=== PATIENT | male | born 1970 | race African-American/Black ===

== ENCOUNTER → 2018-04-09 | Outpatient (CLI) | payer OTHER ==
--- NOTE | 2018-04-09 10:48 | RAD ---
Chest, PA and Lateral: Technique: PA and lateral views of the chest were obtained. History: Congestive heart failure, shortness of breath. Comparison: None. Findings: Mild cardiomegaly. There is no acute infiltrate or visualized pneumothorax identified. Mild degenerative changes thoracic spine. IMPRESSION: 1. Mild cardiomegaly. Otherwise no acute cardiopulmonary findings. Electronically signed by: Brock Smith MD (04/09/2018 10:43 AM) [place] [id number]
== END | disposition home or self-care (01) ==
LOC: PF 08:18
PROVIDERS: ATTEND Surgery
DX: I51.7 Cardiomegaly (principal)
CPT/HCPCS: 71046; 94010